=== PATIENT | male | born 1965 | race Caucasian/White ===

== ENCOUNTER → 2023-04-25 | Outpatient (CLI) | payer OTHER ==
--- NOTE | 2023-04-26 18:06 | CT ---
EXAMINATION TYPE: CT urogram wo/w con DATE OF EXAM: 04/25/2023 COMPARISON: HISTORY: Gross hematuria and excessive urge to urinate. CT DLP: 1621.7 mGycm Automated exposure control for dose reduction was used. Contrast: None Technique: Axial images 5 mm thick sections. Reconstructed images in coronal plane. Pre and postcontr ast imaging is performed. Delayed images were obtained through the kidneys. 3-D reconstructed images are performed and separate computer by the technologist. FINDINGS: Limited CT sections are obtained from lung bases which are clear CT ABDOMEN: Cholelithiasis present. Liver and spleen pancreas appear normal. The adrenal glands are n ormal. Loops of bowel without oral contrast appear unremarkable. Some fecal debris at the cecum and a scending colon. Vascular calcifications within the aorta. Inferior vena cava is normal CT PELVIS: Prostate is prominent and contains calcification. No suspicious enlarged lymphadenopathy w ithin the pelvis is evident. There is a large mass within the urinary bladder. Punctate calcifications identified anteriorly. Se jimbo 4 image 110. Mass measures 9.8 x 7.7 cm. Small calcifications along the anterior margin. Contras t surrounds a portion of this mass. Diffuse wall thickening is within the urinary bladder. This is th rough the posterior portion of the urinary bladder was slightly larger volume of mass on the right co mpared to the left. No hydronephrosis or hydroureter is evident. Three-D reconstructed images are reviewed. Renal calyces infundibula and renal pelves appear normal. Proximal ureters appear normal. Distal ureters are not well visualized. Bladder is evident on the rec onstructed images. IMPRESSION: 1. LARGE URINARY BLADDER MASS. ADDITIONAL WORKUP FOR NEOPLASM RECOMMENDED. NO HYDRONEPHROSIS OR HYDRO URETER IS APPRECIATED AT THIS TIME.
== END | disposition home or self-care (01) ==
LOC: RADCTMAIN 12:43
PROVIDERS: ATTEND Family Medicine
DX: N32.89 Other specified disorders of bladder (principal); R31.0 Gross hematuria; R39.15 Urgency of urination
CPT/HCPCS: 74178; 74400; Q9967

== ENCOUNTER → 2023-05-12 | Outpatient (CLI) | payer OTHER ==
[2023-05-12 19:46] LABS: BUN/Creat Ratio 8.88 Ratio (12.00-20.00); Blood Urea Nitrogen 7.1 mg/dL (9.0-27.0); Calcium 9.5 mg/dL (8.7-10.3); Chloride 103 mmol/L (96-109); Glucose 91 mg/dL (70-110); Potassium 5.3 mmol/L (3.5-5.5); Sodium 139 mmol/L (135-145)
[2023-05-12 23:02] LABS: Basophils # (A) 0.06 X 10*3/uL (0.00-0.10); Eosinophils # (A) 0.13 X 10*3/uL (0.04-0.35); Eosinophils % (A) 2.3 %; HCT 41.7 % (39.6-50.0); HGB 13.5 d/dL (13.0-17.0); Lymphocytes % (A) 33.2 %; MCH 31.8 pg (27.0-32.0); MCHC 32.4 d/dL (32.0-37.0); MCV 98.3 FL (80.0-97.0); Mean Platelet Volume 9.4 FL (9.5-12.2); Monocytes # (A) 0.71 X 10*3/uL (0.20-1.00); Monocytes % (A) 12.4 %; NRBC Per 100 WBC 0 X 10*3/uL (0.00-0.01); Neutrophils # (A) 2.91 X 10*3/uL (1.80-7.70); Neutrophils % (A) 50.8 %; Platelet Count 418 X 10*3/uL (140-440); RBC 4.24 X 10*6/uL (4.40-5.60); RDW 12.3 % (11.5-14.5); WBC 5.73 X 10*3/uL (4.50-10.00)
== END | disposition home or self-care (01) ==
LOC: LABWHC1 13:13
PROVIDERS: ATTEND Urology
DX: Z01.812 Encounter for preprocedural laboratory examination (principal); D49.4 Neoplasm of unspecified behavior of bladder
CPT/HCPCS: 36415; 80048; 85025

== ENCOUNTER → 2023-05-16 | Outpatient (CLI) | payer OTHER | END | disposition home or self-care (01) | LOC: LABPAT 13:55 | PROVIDERS: ATTEND Urology | DX: Z01.818 Encounter for other preprocedural examination (principal) | CPT/HCPCS: 93005 ==

== ENCOUNTER 2023-05-19 07:06 | Day surgery (SDC) | payer OTHER ==
[2023-05-13 16:42] VITALS: BMI 25.0
--- NOTE | 2023-05-15 11:11 | P.GSHP ---
History of Present Illness H&P Date: 05/15/23 Chief Complaint: Gross hematuria The patient is a 57-year-old white male with an unremarkable urologic history. He has experienced intermittent gross hematuria since early this year. CT urogram has shown normal upper tracts, but he was found to have an 8 x 10 cm bladder mass suspicious for urothelial carcinoma. - Genitourinary (Male) Genitourinary: Reports dysuria, Reports hematuria, Reports urinary frequency Past Medical History Past Medical History: Asthma, COPD Additional Past Medical History / Comment(s): bladder tumor, hx hematuria History of Any Multi-Drug Resistant Organisms: None Reported Past Surgical History: No Surgical Hx Reported Additional Past Surgical History / Comment(s): colonoscopy Past Anesthesia/Blood Transfusion Reactions: No Reported Reaction Past Psychological History: No Psychological Hx Reported Smoking Status: Former smoker Past Alcohol Use History: Occasional Additional Past Alcohol Use History / Comment(s): quit smoking 6 yrs ago, smoked off and on for 25 years., smoked 1/2 to 1 ppd Past Drug Use History: None Reported - Past Family History Mother Family Medical History: No Reported History Medications and Allergies Home Medications Medication Instructions Recorded Confirmed Type Albuterol Inhaler [Ventolin Hfa 1 - 2 puff INHALATION Q6H PRN 05/13/23 05/13/23 History Inhaler] Budesonide-Formot 160-4.5 Mcg 2 puff INHALATION BID 05/13/23 05/13/23 History [Symbicort 160-4.5 Mcg Inhaler] Ipratropium [place] [Atrovent Hfa] 2 puff INHALATION BID 05/13/23 05/13/23 History Montelukast [Singulair] 10 mg PO DAILY 05/13/23 05/13/23 History Tamsulosin HCl [Flomax] 0.4 mg PO DAILY 05/13/23 05/13/23 History Allergies Allergy/AdvReac Type Severity Reaction Status Date / Time sulfite Allergy Severe red skin Verified 05/13/23 16:06 and eyes Surgical - Exam - General well developed, well nourished, no distress - Neck no masses, trachea midline - Respiratory normal respiratory effort - Abdomen Abdomen: soft, non tender, no guarding, no rigid, no rebound - Genitourinary normal penis with no external lesions, testicles non-tender - Psychiatric oriented to time, oriented to person, oriented to place, speech is normal, memory intact Results - Imaging CT scan - abdomen: report reviewed, image reviewed Assessment and Plan (1) Neoplasm of unspecified behavior of bladder Status: Acute Code(s): D49.4 - NEOPLASM OF UNSPECIFIED BEHAVIOR OF BLADDER SNOMED Code(s): 586616179 Plan: Cystoscopy, transurethral resection of bladder tumor (TUR-BT). The procedure then reviewed in detail with the patient. He has been made aware of potential r isks, which include anesthesia, bleeding, infection, postoperative urinary retention, bladder perforation, and incomplete resection.
[~2023-05-19 07:06] MED LIST: DEXAMETHASONE SOD PHOSPHATE 4 MG/ML 1 ML VIAL IV ONE; HYDROmorphone 0.5 MG/0.5 ML SYRINGE IVP PRN; MIDAZOLAM 2 MG/2 ML VIAL IV PRN; ONDANSETRON 4 MG/2 ML VIAL IVP ONE; SCOPOLAMINE 1 MG/72 HR PATCH TRANSDERM ONE
[2023-05-19] MEDS: LACTATED RINGERS 1,000 ML IV SCH (07:42)
[2023-05-19] MEDS ORDERED: FUROSEMIDE 10 MG/ML 2 ML VIAL ONE (10:09)
[2023-05-19] MEDS ORDERED: HYDROmorphone (PF) 1 MG/ML ONE (10:09)
[2023-05-19] MEDS ORDERED: SUCCINYLCHOLINE CHLORIDE 200 MG/10 ML VIAL IV ONE (10:09)
[2023-05-19] MEDS ORDERED: MIDAZOLAM 2 MG/2 ML VIAL ONE (10:09)
[2023-05-19] MEDS ORDERED: fentaNYL (PF) 50 MCG/ML 2 ML AMP ONE (10:09)
[2023-05-19] MEDS ORDERED: PROPOFOL 10 MG/ML 20 ML VIAL IV ONE (10:09)
[2023-05-19] MEDS ORDERED: ROCURONIUM 10 MG/ML (5 ML VIAL) IV ONE (10:09)
[2023-05-19] MEDS ORDERED: GLYCOPYRROLATE 0.2 MG/ML 2 ML VIAL ONE (10:09)
[2023-05-19] MEDS ORDERED: LIDOCAINE 2% INJ 20 MG/ML (2 ML VIAL) ONE (10:09)
[2023-05-19] MEDS ORDERED: PHENYLEPHRINE-0.9% NACL SYG 1,000 MCG/10 ML SYRINGE ONE (10:09)
[2023-05-19] MEDS ORDERED: NEOSTIGMINE 1 MG/ML 10 ML VIAL ONE (10:09)
[2023-05-19] MEDS ORDERED: LACTATED RINGERS 1,000 ML IV ONE ×2 (11:33→15:30)
[2023-05-19 16:45] LABS: Basophils % (A) 0 %; Eosinophils % (A) 0 %; HCT 36.1 % (39.0-53.0); HGB 12.1 gm/dL (13.0-17.5); Lymphocytes # (A) 0.7 k/uL (1.0-4.8); Lymphocytes % (A) 12 %; MCH 32.6 pg (25.0-35.0); MCHC 33.5 g/dL (31.0-37.0); MCV 97.4 fL (80.0-100.0); Mean Platelet Volume 7.3; Monocytes # (A) 0.2 k/uL (0-1.0); Monocytes % (A) 4 %; Neutrophils # (A) 4.9 k/uL (1.3-7.7); Neutrophils % (A) 83 %; Platelet Count 355 k/uL (150-450); RBC 3.71 m/uL (4.30-5.90); RDW 12.2 % (11.5-15.5); WBC 5.8 k/uL (3.8-10.6)
[2023-05-19 16:54] LABS: Potassium 5.7 mmol/L (3.5-5.1)
[2023-05-19] MEDS ORDERED: ALBUTEROL NEBULIZED 2.5 MG/3 ML INHALATION PRN (17:08)
--- NOTE | 2023-05-19 17:08 | P.OP ---
Date of Procedure: 05/19/23 Preoperative Diagnosis: Bladder tumor Postoperative Diagnosis: Bladder tumors Procedure(s) Performed: Cystoscopy, transurethral resection of bladder tumors (large) Anesthesia: ARPITA Surgeon: Gasper Leal Estimated Blood Loss (ml): 100 IV fluids (ml): 2,300 Pathology: other (Bladder tumor fragments) Condition: stable Disposition: PACU Indications for Procedure: The patient is a 57-year-old white male with an unremarkable urologic history. He has experienced intermittent gross hematuria since early this year. CT urogram has shown normal upper tracts, but he was found to have an 8 x 10 cm bladder mass suspicious for urothelial carcinoma. Operative Findings: Multiple large papillary bladder tumors arising predominantly from the right posterolateral, left posterolateral, and posterior bladder braswell. Description of Procedure: The patient was taken in the operating room and placed in the dorsal lithotomy position, with his legs supported in Delgado stirrups. The external genitalia was prepped and draped sterilely. The 25-[place] ACMI resectoscope sheath was introduced into the bladder under direct vision. The urethra appeared normal. The prostatic urethra showed evidence of bilobar enlargement. No urothelial changes were seen within the prostatic urethra. Upon entering the bladder, it was apparent that the bladder was filled with multiple papillary bladder tumors. Using the bipolar cutting loop, the tumors were resected starting from the base of the bladder and working toward the bladder neck. As the resection ensued, it was evident that most of the tumors arose from the posterior bladder wall, as well as the posterolateral bladder braswell bilaterally. Tumors were also resected from the vesicle neck and the distal anterior bladder wall. The tumors all had a papillary, noninvasive appearance. The resection was carried down to the muscle. There was no evidence of bladder perforation. Excellent hemostasis was attained. Once the resection was completed, it was possible to identify the ureteral orifices. The right ureteral orifice appeared normal, and had not been resected. The left ureteral orifice had been resected, as there was tumor surrounding it, and care was taken to minimize the use of electrocautery around the orifice. The resected tissue was saved and sent for pathologic examination. It is estimated that the tumors measured over 10 cm in size. A 20-[place] Garcia catheter was inserted. The return was essentially clear. The abdomen was examined throughout the procedure, and at no point was there any evidence of suprapubic distention. The patient tolerated the procedure well and was taken to the recovery room in stable condition.
[2023-05-19] MEDS ORDERED: ACETAMINOPHEN TAB 325 MG TAB PO PRN (17:09)
[2023-05-19] MEDS ORDERED: HYDROcodone/APAP 5-325MG 1 EACH TAB PO PRN (17:09)
[2023-05-19] MEDS ORDERED: HYDROmorphone 2 MG/ML 1 ML SYRINGE IVP PRN (17:09)
[2023-05-19] MEDS ORDERED: HYDROmorphone 1 MG/ML 1 ML SYRINGE IVP PRN (17:18)
[2023-05-19] MEDS: DEXTROSE 5%-0.45% NACL 1,000 ML IV SCH ×2 (18:28→19:52)
[2023-05-19] MEDS: IPRATROPIUM 0.5 MG/2.5 ML NEBU INHALATION SCH ×2 (20:13→20:20)
[2023-05-19] MEDS: SYMBICORT 160-4.5 MCG INHALER INHALATION SCH ×2 (20:13→20:20)
[2023-05-20] MEDS: LACTATED RINGERS 1,000 ML IV SCH (00:01)
[2023-05-20] MEDS: DEXTROSE 5%-0.45% NACL 1,000 ML IV SCH (06:02)
[2023-05-20 07:48] VITALS: RESP 18
[2023-05-20 07:56] VITALS: BP 138/79; PULSE 88; TEMP 99.2
[2023-05-20] MEDS: SYMBICORT 160-4.5 MCG INHALER INHALATION SCH (07:56)
[2023-05-20] MEDS: IPRATROPIUM 0.5 MG/2.5 ML NEBU INHALATION SCH (07:57)
--- NOTE | 2023-05-20 08:12 | P.DS ---
Providers Attending physician: Gasper Leal Primary care physician: [facility] Course: The patient was admitted for a transurethral resection of bladder tumor by . He underwent this without difficulty. Due to the length of the procedure he was kept in the hospital overnight. He has done well. His urine is clear. He is feeling well minimal discomfort. His abdomen was soft. A be discharged home today. He'll follow-up in the office in one week. He will go home with the catheter. He will take Tylenol Motrin for pain. He'll resume his home medications. Patient Condition at Discharge: Good Plan - Discharge Summary Discharge Rx Participant: Yes New Discharge Prescriptions: No Action Tamsulosin HCl [Flomax] 0.4 mg PO DAILY Montelukast [Singulair] 10 mg PO DAILY Ipratropium [place] [Atrovent Hfa] 2 puff INHALATION BID Albuterol Inhaler [Ventolin Hfa Inhaler] 1 - 2 puff INHALATION Q6H PRN PRN Reason: Shortness Of Breath Budesonide-Formot 160-4.5 Mcg [Symbicort 160-4.5 Mcg Inhaler] 2 puff INHALATION BID Discharge Medication List Albuterol Inhaler [Ventolin Hfa Inhaler] 1 - 2 puff INHALATION Q6H PRN 05/13/23 [History] Budesonide-Formot 160-4.5 Mcg [Symbicort 160-4.5 Mcg Inhaler] 2 puff INHALATION BID 05/13/23 [History] Ipratropium [place] [Atrovent Hfa] 2 puff INHALATION BID 05/13/23 [History] Montelukast [Singulair] 10 mg PO DAILY 05/13/23 [History] Tamsulosin HCl [Flomax] 0.4 mg PO DAILY 05/13/23 [History] Follow up Appointment(s)/Referral(s): Gasper Leal MD [STAFF PHYSICIAN] - 1 Week (Home with Garcia leg and overnight bag. Instruct with care) Activity/Diet/Wound Care/Special Instructions: Please instruct and catheter mcc with leg and overnight bag Discharge Disposition: HOME SELF-CARE
[2023-05-20] MEDS ORDERED: TAMSULOSIN 0.4 MG CAP.ER.24H PO SCH (09:00)
[2023-05-20] MEDS ORDERED: MONTELUKAST 10 MG TAB PO SCH (09:00)
== END 2023-05-20 11:21 | disposition home or self-care (01) ==
LOC: OR 07:06 → 5NMEDONC 17:12 → OR 05-20 11:21
PROVIDERS: ATTEND Urology
DX: C67.9 Malignant neoplasm of bladder, unspecified (principal); J44.9 Chronic obstructive pulmonary disease, unspecified; F17.210 Nicotine dependence, cigarettes, uncomplicated; Z98.890 Other specified postprocedural states; Z86.59 Personal history of other mental and behavioral disorders; Z79.51 Long term (current) use of inhaled steroids; Z79.899 Other long term (current) drug therapy
CPT/HCPCS: 80051; 84132; 85025; 52240; J1100; J0690; J2405; 88307

== ENCOUNTER → 2023-10-24 | Outpatient (CLI) | payer OTHER ==
[2023-10-24 15:42] LABS: BUN/Creat Ratio 7.12 Ratio (12.00-20.00); Blood Urea Nitrogen 5.7 mg/dL (9.0-27.0); Calcium 9.6 mg/dL (8.7-10.3); Carbon Dioxide 25.6 mmol/L (21.6-31.8); Chloride 102 mmol/L (96-109); Glucose 90 mg/dL (70-110); Potassium 4.7 mmol/L (3.5-5.5); Sodium 139 mmol/L (135-145)
[2023-10-24 16:01] LABS: Basophils # (A) 0.09 X 10*3/uL (0.00-0.10); Basophils % (A) 1.6 %; Eosinophils # (A) 0.24 X 10*3/uL (0.04-0.35); Eosinophils % (A) 4.3 %; HCT 44.4 % (39.6-50.0); HGB 14.3 g/dL (13.0-17.0); Lymphocytes # (A) 1.98 X 10*3/uL (0.90-5.00); Lymphocytes % (A) 35.7 %; MCH 30.1 pg (27.0-32.0); MCHC 32.2 g/dL (32.0-37.0); MCV 93.5 FL (80.0-97.0); Mean Platelet Volume 10.4 FL (9.5-12.2); Monocytes # (A) 0.65 X 10*3/uL (0.20-1.00); Monocytes % (A) 11.7 %; NRBC Per 100 WBC 0 X 10*3/uL (0.00-0.01); Neutrophils # (A) 2.57 X 10*3/uL (1.80-7.70); Neutrophils % (A) 46.5 %; Platelet Count 366 X 10*3/uL (140-440); RBC 4.75 X 10*6/uL (4.40-5.60); RDW 15.6 % (11.5-14.5); WBC 5.54 X 10*3/uL (4.50-10.00)
== END | disposition home or self-care (01) ==
LOC: LABPAT 11:03
PROVIDERS: ATTEND Urology
DX: Z01.812 Encounter for preprocedural laboratory examination (principal); C67.9 Malignant neoplasm of bladder, unspecified
CPT/HCPCS: 36415; 80048; 85025

== ENCOUNTER 2023-10-27 13:51 | Day surgery (SDC) | payer OTHER ==
--- NOTE | 2023-10-26 21:20 | P.GSHP ---
History of Present Illness H&P Date: 10/26/23 Chief Complaint: Bladder cancer The patient is a 58-year-old white male who experienced gross hematuria throughout 2022. He was diagnosed with a very large bladder mass and underwent transurethral resection May 19, 2023. The resection was complete, revealing low-grade Ta urothelial carcinoma of the bladder. He completed a 6-week course of intravesical Mitomycin-C on August 22, 2023. Cystoscopy performed September 30, 2023 revealed delayed healing on the right posterior bladder wall as well as a 1 cm papillary tumor in the anterior bladder wall. - Constitutional Constitutional: Denies chills, Denies fever - Genitourinary (Male) Genitourinary: Denies dysuria, Denies hematuria Past Medical History Past Medical History: Asthma, Cancer, COPD Additional Past Medical History / Comment(s): bladder cancer History of Any Multi-Drug Resistant Organisms: None Reported Past Surgical History: No Surgical Hx Reported Additional Past Surgical History / Comment(s): apr 2023 tumor removal from bladder Past Anesthesia/Blood Transfusion Reactions: No Reported Reaction Smoking Status: Former smoker - Past Family History Mother Family Medical History: No Reported History Father Family Medical History: No Reported History, Thyroid Disorder Medications and Allergies Home Medications Medication Instructions Recorded Confirmed Type Albuterol Inhaler [Ventolin Hfa 1 - 2 puff INHALATION Q6H PRN 05/13/23 10/20/23 History Inhaler] Budesonide-Formot 160-4.5 Mcg 2 puff INHALATION BID 05/13/23 10/20/23 History [Symbicort 160-4.5 Mcg Inhaler] Ipratropium [place] [Atrovent Hfa] 2 puff INHALATION BID 05/13/23 10/20/23 History Montelukast [Singulair] 10 mg PO DAILY 05/13/23 10/20/23 History Tamsulosin HCl [Flomax] 0.4 mg PO DAILY 05/13/23 10/20/23 History Allergies Allergy/AdvReac Type Severity Reaction Status Date / Time sulfite Allergy Severe red skin Verified 10/20/23 12:39 and eyes Surgical - Exam - General well developed, well nourished, no distress - Respiratory normal respiratory effort - Abdomen Abdomen: soft, non tender, no guarding, no rigid, no rebound - Genitourinary normal penis with no external lesions, testicles non-tender - Psychiatric oriented to time, oriented to person, oriented to place, speech is normal, memor y intact Assessment and Plan (1) Malignant neoplasm of bladder, unspecified Status: Acute Code(s): C67.9 - MALIGNANT NEOPLASM OF BLADDER, UNSPECIFIED SNOMED Code(s): 951290696 Plan: Cystoscopy, transurethral resection of bladder tumor, instillation of intravesical Mitomycin-C. The procedure has been reviewed in detail with the patient. He is aware of potential risks, which include anesthesia, bleeding, infection, postoperative urinary retention, and bladder perforation. He understands that chemotherapy will not be instilled into the bladder in the event of a bladder perforation, and that in that setting he would require a Garcia catheter postoperatively.
[~2023-10-27 13:51] MED LIST changes: -DEXAMETHASONE SOD PHOSPHATE 4 MG/ML 1 ML VIAL IV ONE; +LIDOCAINE 1% (10MG/ML) FOR IV START INTRADERMA PRN; +MITOMYCIN INTRAVESIC ONE; -ONDANSETRON 4 MG/2 ML VIAL IVP ONE; -SCOPOLAMINE 1 MG/72 HR PATCH TRANSDERM ONE
[2023-10-27] MEDS: LACTATED RINGERS 1,000 ML IV SCH (14:01)
[2023-10-27] MEDS: DEXAMETHASONE SOD PHOSPHATE 4 MG/ML 1 ML VIAL IV ONE (14:12)
[2023-10-27] MEDS: ONDANSETRON 4 MG/2 ML VIAL IVP ONE (14:12)
[2023-10-27] MEDS ORDERED: PHENYLEPHRINE-0.9% NACL SYG 1,000 MCG/10 ML SYRINGE ONE (14:54)
[2023-10-27] MEDS ORDERED: PROPOFOL 10 MG/ML 20 ML VIAL IV ONE (14:54)
[2023-10-27] MEDS ORDERED: fentaNYL (PF) 50 MCG/ML 2 ML AMP ONE (14:54)
[2023-10-27] MEDS ORDERED: MIDAZOLAM 2 MG/2 ML VIAL ONE (14:54)
[2023-10-27] MEDS ORDERED: LIDOCAINE 1% INJ 10MG/ML (20 ML MDV) ONE (14:54)
--- NOTE | 2023-10-27 15:45 | P.OP ---
Date of Procedure: 10/27/23 Preoperative Diagnosis: Urothelial carcinoma of the bladder Postoperative Diagnosis: Same Procedure(s) Performed: Cystoscopy, transurethral resection of bladder tumor (small), instillation of intravesical Mitomycin-C Anesthesia: ARPITA Surgeon: Gasper Leal Estimated Blood Loss (ml): 0 IV fluids (ml): 100 Pathology: other (Anterior bladder wall tumor) Condition: stable Disposition: PACU Indications for Procedure: The patient is a 58-year-old white male who experienced gross hematuria throughout 2022. He was diagnosed with a very large bladder mass and underwent transurethral resection May 19, 2023. The resection was complete, revealing low-grade Ta urothelial carcinoma of the bladder. He completed a 6-week course of intravesical Mitomycin-C on August 22, 2023. Cystoscopy performed September 30, 2023 revealed delayed healing on the right posterior bladder wall as well as a 1 cm papillary tumor in the anterior bladder wall. Operative Findings: 7-10 mm anterior bladder dome papillary tumor. Description of Procedure: The patient was taken in the operating room and placed in the dorsal lithotomy position, with his legs supported in Delgado stirrups. The external genitalia was prepped and draped sterilely. The 25-[place] ACMI resectoscope sheath was introduced into the bladder. The bladder was inspected. Both ureteral orifices were of normal anatomic location and configuration, and clear urine effluxed from both. The entire bladder was examined, revealing scarring on the right lateral and posterior bladder braswell. A 7 to 10 mm papillary tumor was seen at the anterior bladder dome. No tumors were seen elsewhere in the bladder. The prostate was partially obstructing, with no urothelial changes seen within the prostatic urethra. Using the bipolar cutting loop, the tumor was resected down to the superficial muscle. The resection bed and adjacent urothelium was fulgurated. Excellent hemostasis was attained. There was no concern of bladder perforation. The resected tissue was saved and sent for patThe bladder was irrigated several times, and the resectoscope was then removed. An 18-[place] Garcia catheter was inserted. The return was clear. 40 mg of Mitomycin-C was instilled into the bladder. The Garcia catheter was plugged. Only a small amount of tissue was retrieved, as tissue fragments were small and slipped through the screen of the drape. The retrieved tissue was saved and sent to Pathology. The patient tolerated the procedure well and was taken to the recovery room in stable condition.
[2023-10-27 16:07] VITALS: TEMP 97.9
[2023-10-27 16:36] VITALS: BP 142/78
[2023-10-27 17:32] VITALS: PULSE 72; RESP 18
== END 2023-10-27 18:11 | disposition home or self-care (01) ==
LOC: OR 13:51
PROVIDERS: ATTEND Urology
DX: C67.9 Malignant neoplasm of bladder, unspecified (principal); Z87.891 Personal history of nicotine dependence; Z79.51 Long term (current) use of inhaled steroids; Z79.899 Other long term (current) drug therapy
CPT/HCPCS: 52234; 88305; J2250; J1100; J0690; J2405; J2001; J3010; J2704; J2371

== ENCOUNTER → 2024-11-15 | Outpatient (CLI) | payer OTHER ==
--- NOTE | 2024-11-15 14:32 | US ---
EXAMINATION TYPE: US kidneys/renal and bladder DATE OF EXAM: 11/15/2024 COMPARISON: CT 04/25/2023 CLINICAL INDICATION: Male, 59 years old with history of C67.9 MALIGNANT NEOPLASM OF BLADDER, UNSPECIF IED; Patient denies any signs, symptoms, or other relevant history TECHNIQUE: Grayscale imaging of the bilateral kidneys and urinary bladder: FINDINGS: EXAM MEASUREMENTS: Right Kidney: 11.6 x 6.5 x 6.1 cm Left Kidney: 10.7 x 5.6 x 6.2 cm Post Void Residual Volume: NA mL Right Kidney: wnl, no evidence for hydronephrosis, mass or renal calculus. Left Kidney: wnl, no evidence for hydronephrosis, mass or renal calculus. Bladder: wnl; ? Thickened wall 0.5 cm Bilateral Jets seen: Yes Normal Post Void Residual: NA There is no evidence for hydronephrosis at this point in time. No nephrolithiasis is seen. No trell s are identified. The urinary bladder is anechoic. IMPRESSION: No hydronephrosis seen bilaterally. No suspicious intraluminal mass in the bladder is not ed. [facility], , 11/15/2024 2:30 PM
== END | disposition home or self-care (01) ==
LOC: RADUSWWP 13:47
PROVIDERS: ATTEND Urology
DX: C67.9 Malignant neoplasm of bladder, unspecified (principal)
CPT/HCPCS: 76770